=== PATIENT | male | born 1990 | race African-American/Black ===

== ENCOUNTER 2017-05-15 09:25 | Emergency (ER) | payer OTHER ==
[~2017-05-15] VITALS: Ht 182.9 cm; Wt 136.1 kg
[2017-05-15 09:26] VITALS: BP 192/124
[2017-05-15] MEDS ORDERED: IBUPROFEN 800800 M1 PO (09:34)
[2017-05-15] MEDS ORDERED: PENICILLIN V P500 MG PO (10:03)
[2017-05-15] MEDS ORDERED: ULTRAM 50MG TAB50 MG PO (10:03)
[2017-05-15] MEDS ORDERED: NAPROSYN500 MG PO (10:03)
== END 2017-05-15 10:05 | disposition home or self-care (01) ==
LOC: ER 09:25
DX: K02.9 Dental caries, unspecified (principal); K05.10 Chronic gingivitis, plaque induced; F17.210 Nicotine dependence, cigarettes, uncomplicated

== ENCOUNTER 2017-06-22 10:26 | Emergency (ER) | payer OTHER ==
[~2017-06-22] VITALS: Ht 182.9 cm; Wt 133.8 kg
[~2017-06-22 10:26] MED LIST: IBUPROFEN 800800 M1 PO; NAPROSYN500 MG PO; PENICILLIN V P500 MG PO; ULTRAM 50MG TAB50 MG PO
[2017-06-22 10:34] VITALS: BP 180/88
[2017-06-22] MEDS ORDERED: NAPROSYN500 MG PO (10:35)
[2017-06-22] MEDS ORDERED: PERIDEX 0.12%473 M1 SSP (10:39)
== END 2017-06-22 11:08 | disposition home or self-care (01) ==
LOC: ER 10:26
DX: K02.9 Dental caries, unspecified (principal); F17.210 Nicotine dependence, cigarettes, uncomplicated

== ENCOUNTER 2018-10-01 08:01 | Emergency (ER) | payer OTHER ==
[~2018-10-01] VITALS: Ht 180.3 cm; Wt 145.2 kg
[~2018-10-01 08:01] MED LIST changes: +PERIDEX 0.12%473 M1 SSP
[2018-10-01 08:04] VITALS: BP 178/79
[2018-10-01] MEDS ORDERED: BENADRYL25 MG PO (08:45)
[2018-10-01] MEDS ORDERED: PREDNISONE 20 M20 MG PO (08:54)
== END 2018-10-01 09:00 | disposition home or self-care (01) ==
LOC: ER 08:01
DX: T50.995A Adverse effect of other drugs, medicaments and biological substances, initial encounter (principal); Y92.89 Other specified places as the place of occurrence of the external cause; F17.210 Nicotine dependence, cigarettes, uncomplicated

== ENCOUNTER 2019-08-14 17:39 | Emergency (ER) | payer OTHER ==
[~2019-08-14] VITALS: Ht 180.3 cm; Wt 145.2 kg
[~2019-08-14 17:39] MED LIST changes: +BENADRYL25 MG PO; +PREDNISONE 20 M20 MG PO
[2019-08-14] MEDS ORDERED: NAPROSYN500 MG PO (18:49)
[2019-08-14 19:23] VITALS: BP 148/94
== END 2019-08-14 19:30 | disposition home or self-care (01) ==
LOC: ER 17:39
DX: S93.492A Sprain of other ligament of left ankle, initial encounter (principal); F17.210 Nicotine dependence, cigarettes, uncomplicated; X50.1XXA Overexertion from prolonged static or awkward postures, initial encounter; Y92.89 Other specified places as the place of occurrence of the external cause; Y93.89 Activity, other specified; Y99.8 Other external cause status